=== PATIENT | female | born 2000 | race Caucasian/White ===

== ENCOUNTER 2022-02-19 01:20 | Emergency (ER) | payer BC ==
[~2022-02-19] VITALS: Ht 154.9 cm; Wt 62.6 kg
[2022-02-19 01:21] VITALS: BP 126/62
--- NOTE | 2022-02-19 01:21 | NUR ---
PT [facility] BED 9
--- NOTE | 2022-02-19 01:25 | NUR ---
PT AMBULATED TO RESTROOM UNASSISTED.
--- NOTE | 2022-02-19 01:29 | NUR ---
Patient being evaluated by physician at bedside.
--- NOTE | 2022-02-19 01:40 | NUR ---
Patient presented to facility under the influence of Alcohol. Patient is currently ambulatory with steady gait, able to walk unassisted. Positive gag reflex. Alert and oriented. Is not driving self for discharge out of facility. Family is present in lobby and providing transport home
== END 2022-02-19 01:40 | disposition home or self-care (01) ==
LOC: MED 01:20
DX: F10.129 Alcohol abuse with intoxication, unspecified (principal); R10.9 Unspecified abdominal pain; F12.90 Cannabis use, unspecified, uncomplicated; Y90.9 Presence of alcohol in blood, level not specified
CPT/HCPCS: 99283